=== PATIENT | female | born 1950 | race Caucasian/White ===

== ENCOUNTER → 2016-12-14 | Outpatient (CLI) | payer MEDICARE, OTHER ==
[2016-12-14 10:51] LABS: EKG EKG PERFORMED
[2016-12-14 11:32] LABS: Basophils # (A) 0.1 k/uL (0-0.2); Basophils % (A) 1 %; CH 32.7; Eosinophils # (A) 0.1 k/uL (0-0.7); Eosinophils % (A) 2 %; HCT 35.5 % (34.0-46.0); HDW 2.48; HGB 11.6 gm/dL (11.4-16.0); Luc # (Auto) 0.15; Luc % (Auto) 4; Lymphocytes % (A) 22 %; MCH 32.7 pg (25.0-35.0); MCHC 32.7 g/dL (31.0-37.0); MCV 99.7 fL (80.0-100.0); Mean Platelet Volume 6.6; Monocytes # (A) 0.3 k/uL (0-1.0); Monocytes % (A) 7 %; Neutrophils # (A) 2.7 k/uL (1.3-7.7); Neutrophils % (A) 64 %; RBC 3.56 m/uL (3.80-5.40); RDW 13.5 % (11.5-15.5); WBC 4.3 k/uL (3.8-10.6); WBC (Perox) 4.43
[2016-12-14 11:33] LABS: Partial Thromboplastin Time 22.7 sec (22.0-30.0)
[2016-12-14 11:38] LABS: Appearance,Urine Cloudy (Clear); Bacteria,Urine Occasional /hpf; Bilirubin,Urine Negative (Negative); Glucose,Urine (UA) Negative (Negative); Ketones,Urine Negative (Negative); Leukocyte Esterase,Urine Large (Negative); Mucus,Urine Rare /hpf; Nitrite,Urine Negative (Negative); PH, Urine 5.5 (5.0-8.0); Particle Count 23413; Protein,Urine Trace (Negative); RBC,Urine 5 /hpf (0-5); Specific Gravity,Urine 1.019 (1.001-1.035); Squamous Epithelial Cell,Urine 12 /hpf (0-4); UA Billing (MACRO vs. MICRO) MICRO; Urobilinogen,Urine <2.0 mg/dL (<2.0); WBC,Urine 64 /hpf (0-5)
[2016-12-14 11:39] LABS: ALT 28 U/L (9-52); AST 21 U/L (14-36); Alkaline Phosphatase 94 U/L (38-126); Anion Gap 10 mmol/L; Blood Urea Nitrogen 41 mg/dL (7-17); Calcium 10.2 mg/dL (8.4-10.2); Carbon Dioxide 27 mmol/L (22-30); Chloride 103 mmol/L (98-107); Glucose 95 mg/dL (74-99); Non-African American GFR(MDRD) 35 (>60 ml/min/1.73 sqM); Potassium 5.1 mmol/L (3.5-5.1); Sodium 140 mmol/L (137-145); Total Bilirubin 0.4 mg/dL (0.2-1.3); Total Protein 7.2 g/dL (6.3-8.2)
== END | disposition home or self-care (01) ==
LOC: LABPAT 10:34
PROVIDERS: ATTEND Orthopaedic Surgery
DX: Z01.818 Encounter for other preprocedural examination (principal)
CPT/HCPCS: 80053; 81001; 85025; 85610; 85730; 87070; 93005

== ENCOUNTER 2016-12-31 12:30 | Inpatient (IN) | payer MEDICARE, OTHER ==
[2016-12-30 10:30] VITALS: BMI 35.9
[2017-01-04] MEDS ORDERED: CLINDAMYCIN 900 MG in DEXTROSE 5% IN WATER 50 ML IVPB ONE ×2 (05:00)
[2017-01-04] MEDS ORDERED: MELOXICAM 7.5 MG TAB PO ONE (05:00)
[2017-01-04] MEDS ORDERED: TRANEXAMIC ACID 1,000 MG in SODIUM CHLORIDE 0.9% 100 ML IVPB ONE ×4 (05:00)
[2017-01-04] MEDS ORDERED: ACETAMINOPHEN TAB 500 MG TAB PO ONE (05:00)
[2017-01-04] MEDS ORDERED: HYDROmorphone 1 MG/ML 1 ML SYRINGE IVP PRN ×4 (05:17→16:52)
[2017-01-04] MEDS ORDERED: ONDANSETRON 4 MG/2 ML VIAL IVP ONE (05:17)
[2017-01-04] MEDS ORDERED: DEXAMETHASONE SOD PHOSPHATE 10 MG/ML 1 ML VIAL IV ONE (05:17)
[2017-01-04] MEDS ORDERED: MIDAZOLAM 2 MG/2 ML VIAL IV PRN (05:17)
[2017-01-04] MEDS ORDERED: ROPIVACAINE 246.25 MG, EPINEPHrine 0.5 MG, KETOROLAC 30 MG, cloNIDine HCL/PF 80 MCG, WA... MISCELLANE ONE ×5 (09:01)
[2017-01-04] MEDS ORDERED: LIDOCAINE 1% 20 ML VIAL (10MG/ML) FOR IV START INTRADERMA ONE (12:00)
[2017-01-04 12:10] LABS: Glucose,Whole Blood 125 mg/dL (75-99)
[2017-01-04] MEDS: LACTATED RINGERS 1,000 ML IV SCH (12:10)
[2017-01-04] MEDS ORDERED: fentaNYL (PF) 50 MCG/ML 2 ML AMP IV ONE (13:02)
[2017-01-04] MEDS ORDERED: MIDAZOLAM 2 MG/2 ML VIAL IV ONE (13:02)
[2017-01-04] MEDS ORDERED: ROPIVACAINE 1,100 MG, SODIUM CHLORIDE 0.9% 330 ML MISCELLANE PRN ×2 (14:03)
--- NOTE | 2017-01-04 14:07 | P.ONQ ---
Anesthesiology Proc Note - PNB - Peripheral Nerve Block Performed Left Adductor Canal Infusion Time Out Performed: Yes Indication: Acute Post-Operative Pain, Analgesia Specifically requested for management of pain by DrFlorentin: Erick De La Fuente Sedation Type: Sedate with meaningful contact maintained Preparation: Sterile Prep Position: Supine Catheter Depth at Skin (cm): 6 Catheter: Indwelling Needle Types: Other (see comment) (Pajunk) Needle Size: Other (see comment) (83 mm) Needle Gauge: 18 Technique: Ultrasound Injectate: 0.5% Ropivacaine (see comment for volume) (20 cc) Blood Aspirated: No Pain Paresthesia on Injection Noted: No Resistance on Injection: Normal Events: Uneventful and Well Tolerated
[2017-01-04] MEDS ORDERED: LIDOCAINE 1% INJ 10MG/ML (20 ML MDV) ONE (15:00)
[2017-01-04] MEDS ORDERED: fentaNYL (PF) 50 MCG/ML 2 ML AMP ONE (15:00)
[2017-01-04] MEDS ORDERED: PHENYLEPHRINE-0.9% NACL SYG 1 MG/10 ML SYRINGE ONE (15:00)
[2017-01-04] MEDS ORDERED: MIDAZOLAM 2 MG/2 ML VIAL ONE (15:00)
[2017-01-04] MEDS ORDERED: ePHEDrine 50 MG/ML 1 ML AMP ONE (15:00)
[2017-01-04] MEDS ORDERED: SODIUM CHLORIDE 0.9% 100 ML BAG ONE (15:00)
[2017-01-04] MEDS ORDERED: PROPOFOL 10 MG/ML 20 ML VIAL IV ONE (15:00)
[2017-01-04] MEDS ORDERED: SUCCINYLCHOLINE CHLORIDE 100 MG/5 ML SYR IV ONE (15:00)
[2017-01-04] MEDS ORDERED: TRANEXAMIC ACID 1,000 MG/10 ML VIAL ONE (15:00)
[2017-01-04] MEDS ORDERED: CLINDAMYCIN 1,800 MG in SODIUM CHLORIDE 0.9% IRRIGATIO 3,000 ML IRRIGATION ONE (15:56)
[2017-01-04] MEDS ORDERED: LACTATED RINGERS 1,000 ML IV ONE (15:59)
--- NOTE | 2017-01-04 16:27 | P.OP ---
Date of Procedure: 01/04/17 Preoperative Diagnosis: Severe osteoarthritis left knee Postoperative Diagnosis: Severe osteoarthritis left knee Procedure(s) Performed: Left total knee arthroplasty Implants: Will and Nephew Oxinium femoral component size 5 Narrow, left Will & Nephew Brandi II left nonporous tibial baseplate size 3 Will & Nephew size 9 mm Legion XLPE dished articular insert, size 3-4 Will & Nephew Brandi II resurfacing patellar component, 32 mm All components were cemented using Javier bone cement.. The articulation is ceramic on polyethylene. Anesthesia: spinal Surgeon: Erick De La Fuente Lens Edger #1: Ally Jenkins Lens Edger #2: Shayy Rushing Estimated Blood Loss (ml): 50 Pathology: other (Bone and cartilage) Condition: stable Disposition: PACU Indications for Procedure: After failure of conservative treatment we discussed the surgical and nonsurgical treatment options at length. Patient wishes to proceed with a total knee arthroplasty. Complications specific to this procedure were discussed at length, including but not limited to infection, bleeding, stiffness , and nerve injury. Patient is aware of all these complications and informed consent was obtained Operative Findings: The operative findings are consistent with severe osteoarthritis of the left knee Description of Procedure: Patient was seen in the preoperative area consent was reviewed and operative site was marked with a skin marker. An adductor canal pain catheter was placed by anesthesia in the preoperative area. Patient was then brought to the operating room and given preoperative antibiotics intravenously. A spinal anesthetic was administered by the anesthesia department. A tourniquet was placed on the upper thigh and the lower extremity was prepped and draped in usual sterile fashion. A gram of transexamic acid was given. A universal timeout was then performed which confirmed the patient's name, surgical site, ALLERGIES, and consent. The lower extremity was then exsanguinated and tourniquet was inflated to 250 mmHg. A standard and anterior midline approach to the knee was performed. The skin and subcutaneous tissue was dissected down to the patellar tendon. A medial parapatellar arthrotomy was then performed. The knee was then extended, the patellar was everted, and the knee was again flexed. Anterior horns of both menisci were excised, and a release was performed to the posterior medial aspect of the knee. On gross visual inspection, there was complete loss of articular cartilage in the medial and patellofemoral joint spaces. There was also significant cartilage damage in the lateral compartment. There were multiple periarticular osteophytes which were then removed with a Ronguer. The femoral canal was then opened with the appropriate drill, and the intramedullary femoral cutting guide was then placed and set for 4 of valgus. The distal femoral cutting block was then pinned in place, and the distal femur was then cut. The cutting block was then removed and the cut was checked for flatness. Next, the sizing guide was then placed and set for 3 external rotation based off of the epicondylar axis and Whitesides line. After the femur was sized, the appropriate 4-in-1 cutting block was then pinned in place. The anterior condyles were cut without notching. The posterior and chamfer cuts were performed while protecting the collateral ligaments. The cutting block was then removed, and the femoral canal was plugged with autologous bone. Attention was then directed to the tibia. The remaining ACL was removed with a Ronguer, and the tibia was then gently subluxed forward with a large bent knee retractor. Any remaining menisci was excised. The posterior lateral corner was cauterized in order to cauterize the lateral geniculate artery. The extra medullary tibial cutting guide was then placed, set for the appropriate rotation , slope, and depth of resection. The proximal tibia cutting guide was then pinned in place. Proximal tibia was then cut and sized. Next trials were then placed with the appropriate-sized insert. The knee was able to fully extend and flex to 130 and was stable throughout all range of motion. The knee was then extended, patella everted. Patella was then measured, and then using an osteotomy guide, the patella was cut at the appropriate level. The patella was then measured and drilled and the patella trial was then placed. The knee was then taken through range of motion with the patella trial and the patella tracked normally. The knee was then extended patella trial was then removed and the patella was everted. Knee was then flexed and lug holes were drilled through the femoral trial and the femoral trial was then removed. The tibial was then exposed, and the tibial broach guide was then pinned in place after it was set for the appropriate rotation to allow for the most coverage without overhang. The tibia was then reamed and broached. The cut surfaces of bone were then irrigated with pulsatile lavage. The posterior structures were injected with the ropivacaine solution. The knee was also irrigated with Irrisept solution. The components were then opened, the cement was mixed, and the components were then cemented in place. The cement was allowed to harden with the knee in full extension. While the cement was hardening, the remaining soft tissues were then injected with a ropivacaine solution, which consisted of 246.25 mg of ropivacaine, 0.5 mg of epinephrine, 30 mg of Toradol, 80 g of clonidine, and 48.45 mL of sterile water, for a total of 100 mL of fluid injected. After the cemented hardened. The tourniquet was released, and hemostasis was obtained. A second gram of transexamic acid was given. The knee was again irrigated. The knee was again taken through range of motion and found to be stable throughout all range of motion of 0-130 , and the patella tracked normally. The fascia was then closed with #2 strata fix suture. The subcutaneous tissue was closed with 3-0 Vicryl and 3-0 strata fix. Dermabond tape was used for the skin and placed with the knee in flexion. The patient was placed in a sterile dressing. Patient was then transferred to recovery room in stable condition. The veterinary technician assistant ANKIT Dacosta was required due the complexity surgery and the need for a skilled surgical services director. She assisted in positioning, draping , retraction, and closure of the wound.
[2017-01-04] MEDS ORDERED: NA PHOS,M-B/NA PHOS,DI-BA 133 ML ENEMA RECTAL PRN (16:52)
[2017-01-04] MEDS ORDERED: ONDANSETRON 4 MG/2 ML VIAL IVP PRN (16:52)
[2017-01-04] MEDS ORDERED: DIAZEPAM 5 MG TAB PO PRN ×2 (16:52)
[2017-01-04] MEDS ORDERED: BISACODYL 10 MG SUPP RECTAL PRN (16:52)
[2017-01-04] MEDS ORDERED: NALOXONE 0.4 MG/ML 1 ML VIAL IV PRN (16:52)
[2017-01-04] MEDS ORDERED: HYDROcodone/APAP 5-325MG 1 EACH TAB PO PRN (16:52)
[2017-01-04] MEDS ORDERED: hydrOXYzine PAMOATE 25 MG CAP PO PRN (16:52)
[2017-01-04] MEDS ORDERED: MAGNESIUM HYDROXIDE 2,400 MG/10 ML CUP PO PRN (16:52)
--- NOTE | 2017-01-04 17:20 | XR ---
EXAMINATION TYPE: XR knee limited LT DATE OF EXAM: 01/04/2017 5:13 PM COMPARISON: NONE HISTORY: Postop TECHNIQUE: 2 views FINDINGS: There is a left knee prosthesis. Components appear in anatomic position. There is old heale d fracture of the proximal fibula. IMPRESSION: Knee prosthesis without evidence of a complicating process.
[2017-01-04 17:25] LABS: Glucose,Whole Blood 158 mg/dL (75-99)
[2017-01-04] MEDS ORDERED: LISINOPRIL-HCTZ 20-12.5 MG 1 EACH TAB PO SCH (21:00)
[2017-01-04] MEDS ORDERED: SENNOSIDES-DOCUSATE SODIUM 1 EACH TAB PO SCH (21:00)
[2017-01-04] MEDS: ASPIRIN 325 MG TAB PO SCH (22:11)
[2017-01-04] MEDS: SODIUM CHLORIDE 0.9% 1,000 ML IV SCH (22:16)
[2017-01-05] MEDS: CLINDAMYCIN 900 MG in DEXTROSE 5% IN WATER 50 ML IVPB SCH ×4 (01:18→08:13)
[2017-01-05 02:35] VITALS: RESP 16
[2017-01-05] MEDS: HYDROcodone/APAP 5-325MG 1 EACH TAB PO PRN ×2 (03:03→11:39)
[2017-01-05] MEDS ORDERED: VANCOMYCIN 1,250 MG in SODIUM CHLORIDE 0.9% 250 ML IVPB ONE (05:00)
[2017-01-05] MEDS: LACTATED RINGERS 1,000 ML IV SCH (05:24)
--- NOTE | 2017-01-05 06:17 | CONS ---
DATE OF CONSULTATION: 01/04/2017 REASON FOR CONSULTATION: Medical management requested by Dr. De La Fuente. CONSULTATION: This is a very pleasant 66-year-old patient with extensive medical history. Patient has undergone a left total knee arthroplasty. Postprocedure some pain is present. No nausea or vomiting. No chest pain. Patient's chronic stable medical conditions include diet-controlled diabetes, fibromyalgia, hypertension, osteoarthritis, hypothyroid, pacemaker, bipolar disorder. Family is at the bedside. REVIEW OF SYSTEMS: CONSTITUTIONAL: None. HEENT: None. RESPIRATORY: None. CARDIOVASCULAR: None. GASTROINTESTINAL: None. GENITOURINARY: None. DERMATOLOGICAL: None. HEMATOLOGICAL: None. LYMPHATIC: None. PSYCHIATRY: None. NEUROLOGICAL: None. MUSCULOSKELETAL: Pain in multiple joints. PAST MEDICAL HISTORY: History of stroke with some left-sided numbness, diet-controlled diabetes, fibromyalgia, hypertension, osteoarthritis, hypothyroid, gastric ulcer, bipolar disorder, permanent pacemaker, bradycardia. PAST SURGICAL HISTORY: Adenoidectomy, pacemaker, tonsillectomy, right hip arthroplasty, right total knee, right rotator cuff surgery, pain clinic injection. SOCIAL HISTORY: Lives by herself. Smoked for more than 20 years a pack a day, stopped in 2005. FAMILY HISTORY: Diabetes mellitus type 2. Allergies to PENICILLIN, LYRICA, CYMBALTA. HOME MEDICATIONS: 1. Wellbutrin XL 300 mg a day. 2. Vitamin B complex 1 capsule p.o. daily. 3. Naproxen 500 mg p.o. q.12. 4. Multivitamin 1 tablet p.o. daily. 5. Magnesium 100 mg p.o. daily. 6. Lisinopril hydrochlorothiazide /12.5 one tablet p.o. q.h.s. 7. Tylenol 1000 mg q.6 p.r.n. On examination, temperature 97.6, pulse 60, respirations 12, blood pressure 129/67, pulse ox 97% on room air. GENERAL APPEARANCE: Well built, BMI of 35.9. Sitting up in bed, not in distress, comfortable. EYES: Pupils equal. Conjunctivae normal. HEENT: Oral cavity normal. NECK: JVD not raised. Mass not palpable. RESPIRATORY: Effort normal. LUNGS: Fair air entry. CARDIOVASCULAR: First and second sounds normal. No edema. ABDOMEN: Soft, nontender. Liver and spleen not palpable. LYMPHATIC: No lymph node palpable in neck or axillae. PSYCHIATRY: Alert and oriented x3. Mood and affect normal. NEUROLOGICAL: Pupils equal. Cranial nerves grossly intact. EXTREMITIES: Left knee in a dressing. ASSESSMENT: 1. Left total knee arthroplasty. 2. Numbness on the left side chronic from prior stroke. 3. Diet-controlled diabetes mellitus type 2. 4. Chronic fibromyalgia. 5. Essential hypertension. 6. Primary osteoarthritis of multiple joints, bilaterally. 7. Hypothyroidism, chronic. 8. Permanent pacemaker, chronic. 9. Bipolar disorder, controlled, stable. PLAN: Continue current medication and treatment plan, supportive care. The patient is on aspirin 325 p.o. b.i.d. for DVT prophylaxis. Pain control is in place. Care was discussed with the patient. Questions were answered. Home medications will be resumed. Thank you, Dr. De La Fuente.
[2017-01-05 07:09] VITALS: BP 113/70; PULSE 62; TEMP 98.1
[2017-01-05 07:39] LABS: Basophils % (A) 1 %; CH 33.4; CHCM 33.6; Eosinophils # (A) 0.1 k/uL (0-0.7); Eosinophils % (A) 1 %; HCT 29.8 % (34.0-46.0); HDW 2.48; Luc # (Auto) 0.22; Luc % (Auto) 3; Lymphocytes # (A) 0.9 k/uL (1.0-4.8); Lymphocytes % (A) 12 %; MCH 33.3 pg (25.0-35.0); MCHC 33.4 g/dL (31.0-37.0); MCV 99.7 fL (80.0-100.0); Mean Platelet Volume 6.5; Monocytes # (A) 0.5 k/uL (0-1.0); Monocytes % (A) 7 %; Neutrophils # (A) 6.3 k/uL (1.3-7.7); Neutrophils % (A) 78 %; RBC 2.99 m/uL (3.80-5.40); RDW 13.1 % (11.5-15.5); WBC 8.1 k/uL (3.8-10.6)
[2017-01-05 07:42] LABS: HGB 9.9 gm/dL (11.4-16.0)
[2017-01-05] MEDS: ASPIRIN 325 MG TAB PO SCH (08:13)
[2017-01-05] MEDS ORDERED: buPROPion XL 300 MG TAB.ER.24H PO SCH (09:00)
[2017-01-05] MEDS ORDERED: MELOXICAM 7.5 MG TAB PO SCH (09:00)
[2017-01-05] MEDS ORDERED: MAGNESIUM OXIDE 400 MG TAB PO SCH (09:00)
--- NOTE | 2017-01-05 09:12 | P.DS ---
Providers Date of admission: 01/04/17 11:14 Expected date of discharge: 01/05/17 Attending physician: Erick De La Fuente Consults: 01/04/17 16:52 Consult Physician Routine Consulting Provider: Amadou Pérez Consult Reason/Comments: medical management Do you want consulting provider notified?: Yes 01/04/17 17:26 Consult Physician Routine Consulting Provider: Fran Nunez Consult Reason/Comments: medical managment Do you want consulting provider notified?: Yes Primary care physician: Amadou Pérez [facility] Course: This is a 66-year-old female with known history of degenerative arthritis of the left knee. The patient presents for evaluation. After discussion and consideration patient elects to proceed with total knee arthroplasty. The patient is seen preoperatively by Dr. De La Fuente and cleared for surgery. Patient is admitted to [facility] on 01/04/2017 for total knee arthroplasty. The procedures performed without complication or sequelae. The patient is doing well postoperatively. Labs and vital signs are stable on day of discharge. On day of discharge patient's knee incision is healing well. Patient has been up and walking. There is minimal erythema. There is no drainage noted at this time. There is minimal soft tissue swelling to the knee. Patient has full foot and ankle motion without difficulty or pain. Neurovascular status to the left lower extremity is intact. Patient is discharged home in good condition. Please see med rec for accurate list of home medications. Plan - Discharge Summary New Discharge Prescriptions: Aspirin 325 mg PO BID #60 tab HYDROcodone/APAP 5-325MG [[place] 5-325] 1 - 2 tab PO Q4-6H PRN #90 tab PRN Reason: Pain Sennosides-Docusate Sodium [Senokot-S] 1 tab PO BID #60 tablet Discharge Medication List Multivitamins, Thera [Multivitamin (formulary)] 1 tab PO DAILY 12/26/15 [History ] buPROPion XL [Wellbutrin XL] 300 mg PO QAM 12/26/15 [History] Lisinopril-Hctz 20-12.5 mg [Zestoretic 20-12.5] 1 tab PO HS 03/12/16 [History] Vitamin B Complex 1 cap PO DAILY 03/22/16 [History] Magnesium 100 mg PO DAILY 05/04/16 [History] Naproxen 500 mg PO Q12HR 12/30/16 [History] Acetaminophen Tab [Tylenol Tab] 1,000 mg PO Q6HR PRN 01/04/17 [History] Aspirin 325 mg PO BID #60 tab 01/05/17 [Rx] HYDROcodone/APAP 5-325MG [[place] 5-325] 1 - 2 tab PO Q4-6H PRN #90 tab 01/05/17 [ Rx] Sennosides-Docusate Sodium [Senokot-S] 1 tab PO BID #60 tablet 01/05/17 [Rx] Follow up Appointment(s)/Referral(s): Erick De La Fuente DO [Doctor of Osteopathic Medicine] - 2 Weeks Ambulatory/Diagnostic Orders: Continuous Passive Motion (CPM) Machine [DME.AMB1] Time Frame: 2 Weeks, Location : Determined By Patient Activity/Diet/Wound Care/Special Instructions: Weightbearing as tolerated with a walker CPM 5-6h daily Daily dressing changes, keep incision clean and dry May shower if no drainage from incision [facility] with questions or concerns [phone] Discharge Disposition: HOME WITH HOME HEALTH SERVICES
--- NOTE | 2017-01-05 12:24 | P.PN ---
Progress Note - Text 0747 anesthesia POD 1. Patient is status post left TKR under spinal anesthesia with a left adductor canal catheter placed for postoperative pain relief. With ropivacaine 0.2% running at 8 mL per hour patient's VAS is (1, 3). Catheter site is clean dry and intact.
[2017-01-05] MEDS: SODIUM CHLORIDE 0.9% 1,000 ML IV SCH (17:13)
--- NOTE | 2017-01-05 21:58 | PN ---
DATE OF SERVICE: 01/05/2017 PRESENTING COMPLAINT: Left total knee arthroplasty. INTERVAL HISTORY: Patient was seen earlier by me today. Pain is controlled. No nausea or vomiting. Tolerating a diet. Did work with Physical Therapy, rather excited to go home. Review of systems done for constitutional, cardiovascular, GI, pulmonary, musculoskeletal; relevant findings as above. Current medications are reviewed. On examination, temperature 98.1, pulse 62, respirations 16, blood pressure 103/70, pulse ox 99% on room air. GENERAL APPEARANCE: Sitting up, not in distress. EYES: Pupils equal. Conjunctivae normal. NECK: JVD not raised. Mass not palpable. RESPIRATORY: Effort normal. LUNGS: Clear. CARDIOVASCULAR: First and second sounds normal. No edema. ABDOMEN: Soft, nontender. Liver and spleen not palpable. PSYCHIATRY: Alert and oriented x3. Mood and affect were normal. INVESTIGATIONS: White count 8.1, hemoglobin 9.9. ASSESSMENT: 1. Left total knee arthroplasty. 2. Numbness of the left side; chronic, from prior stroke. 3. Diet-controlled diabetes mellitus type 2. 4. Chronic fibromyalgia. 5. Essential hypertension. 6. Primary osteoarthritis in multiple joints bilaterally. 7. Hypothyroidism, chronic. 8. Permanent pacemaker. 9. Bipolar disorder, controlled. PLAN: Continue current medication and treatment plan. Care was discussed with the patient.
== END 2017-01-05 16:46 | disposition home health service (06) | DRG 470 ==
LOC: 2ORMAIN 01-04 11:14 → 3SUR 01-04 17:21
PROVIDERS: ADMIT Orthopaedic Surgery; ATTEND Orthopaedic Surgery
PROC: 0SRD0J9 Replacement of Left Knee Joint with Synthetic Substitute, Cemented, Open Approach (ICD-10-PCS; principal; 2017-01-04 13:15)
DX: M17.12 Unilateral primary osteoarthritis, left knee (principal); I10 Essential (primary) hypertension; E03.9 Hypothyroidism, unspecified; Z88.0 Allergy status to penicillin; E11.9 Type 2 diabetes mellitus without complications; F31.9 Bipolar disorder, unspecified; M79.7 Fibromyalgia; Z86.73 Personal history of transient ischemic attack (TIA), and cerebral infarction without residual deficits; Z87.11 Personal history of peptic ulcer disease; Z87.891 Personal history of nicotine dependence; Z95.0 Presence of cardiac pacemaker; Z79.899 Other long term (current) drug therapy
CPT/HCPCS: 85025; 88300

== ENCOUNTER → 2017-04-11 | Outpatient (CLI) | payer MEDICARE, OTHER ==
[2017-04-11 09:26] LABS: Calcium 9.9 mg/dL (8.4-10.2); Phosphorous 3.8 mg/dL (2.5-4.5); Potassium 5.1 mmol/L (3.5-5.1); Total Bilirubin 0.3 mg/dL (0.2-1.3); Total Protein 7.3 g/dL (6.3-8.2); Uric Acid 5.1 mg/dL (3.7-7.4)
[2017-04-11 10:04] LABS: Basophils % (A) 1 %; CH 32.9; CHCM 33.3; Eosinophils # (A) 0.2 k/uL (0-0.7); Eosinophils % (A) 4 %; HCT 39.7 % (34.0-46.0); HDW 2.44; HGB 12.9 gm/dL (11.4-16.0); Luc # (Auto) 0.17; Luc % (Auto) 4; Lymphocytes # (A) 1.6 k/uL (1.0-4.8); Lymphocytes % (A) 36 %; MCH 32.3 pg (25.0-35.0); MCHC 32.6 g/dL (31.0-37.0); MCV 99.1 fL (80.0-100.0); Monocytes # (A) 0.4 k/uL (0-1.0); Monocytes % (A) 9 %; Neutrophils # (A) 2.1 k/uL (1.3-7.7); Neutrophils % (A) 47 %; RBC 4.01 m/uL (3.80-5.40); RDW 13.1 % (11.5-15.5); WBC 4.4 k/uL (3.8-10.6); WBC (Perox) 4.05
[2017-04-11 17:18] LABS: Urine Creatinine 88.7 mg/dL
== END | disposition home or self-care (01) ==
LOC: LABWHC1 08:28
PROVIDERS: ATTEND Family Medicine
DX: I12.9 Hypertensive chronic kidney disease with stage 1 through stage 4 chronic kidney disease, or unspecified chronic kidney disease (principal); N18.3 Chronic kidney disease, stage 3 (moderate); R94.6 Abnormal results of thyroid function studies
CPT/HCPCS: 36415; 80053; 80061; 82043; 82306; 82570; 83735; 84100; 84439; 84443; 84550; 85025

== ENCOUNTER → 2017-11-14 | Outpatient (CLI) | payer MEDICARE, OTHER ==
[2017-11-14 09:37] LABS: Basophils # (A) 0.1 k/uL (0-0.2); Basophils % (A) 0 %; Eosinophils # (A) 0.1 k/uL (0-0.7); Eosinophils % (A) 0 %; HCT 30.4 % (34.0-46.0); HGB 10.1 gm/dL (11.4-16.0); Lymphocytes # (A) 0.8 k/uL (1.0-4.8); Lymphocytes % (A) 5 %; MCH 31.8 pg (25.0-35.0); MCHC 33.2 g/dL (31.0-37.0); MCV 95.8 fL (80.0-100.0); Monocytes # (A) 0.9 k/uL (0-1.0); Monocytes % (A) 5 %; Neutrophils # (A) 15.9 k/uL (1.3-7.7); Neutrophils % (A) 88 %; Platelet Count 313 k/uL (150-450); RBC 3.17 m/uL (3.80-5.40); RDW 13.3 % (11.5-15.5)
[2017-11-14 10:00] LABS: Albumin 3.5 g/dL (3.5-5.0); Calcium 9.5 mg/dL (8.4-10.2); Magnesium 1.7 mg/dL (1.6-2.3); Phosphorus 2.6 mg/dL (2.5-4.5); Potassium 5.1 mmol/L (3.5-5.1); Total Bilirubin 0.3 mg/dL (0.2-1.3); Total Protein 6.5 g/dL (6.3-8.2); Uric Acid 6.7 mg/dL (3.7-7.4)
[2017-11-14 10:09] LABS: T4, Free (Free Thyroxine) 1.23 ng/dL (0.78-2.19)
[2017-11-14 15:22] LABS: Vitamin D 25 Hydroxy 26.9 ng/mL (30.0-100.0)
== END | disposition home or self-care (01) ==
LOC: LABWHC1 08:53
PROVIDERS: ATTEND Family Medicine
DX: E78.5 Hyperlipidemia, unspecified (principal); E83.42 Hypomagnesemia; I12.9 Hypertensive chronic kidney disease with stage 1 through stage 4 chronic kidney disease, or unspecified chronic kidney disease; N18.3 Chronic kidney disease, stage 3 (moderate); E03.9 Hypothyroidism, unspecified
CPT/HCPCS: 36415; 80053; 80061; 82043; 82306; 82570; 83735; 83970; 84100; 84439; 84443; 84550; 85025

== ENCOUNTER → 2017-11-18 | Outpatient (CLI) | payer MEDICARE, OTHER ==
[2017-11-18 09:34] LABS: Basophils # (A) 0.1 k/uL (0-0.2); Basophils % (A) 1 %; Eosinophils # (A) 0.2 k/uL (0-0.7); Eosinophils % (A) 2 %; HCT 29.6 % (34.0-46.0); HGB 9.2 gm/dL (11.4-16.0); Lymphocytes % (A) 13 %; MCH 29.8 pg (25.0-35.0); MCHC 31.2 g/dL (31.0-37.0); MCV 95.3 fL (80.0-100.0); Mean Platelet Volume 6.9; Monocytes # (A) 0.7 k/uL (0-1.0); Monocytes % (A) 10 %; Neutrophils # (A) 5.2 k/uL (1.3-7.7); Neutrophils % (A) 70 %; Platelet Count 395 k/uL (150-450); RDW 13.1 % (11.5-15.5); WBC 7.4 k/uL (3.8-10.6)
[2017-11-18 10:02] LABS: Calcium 9.8 mg/dL (8.4-10.2)
[2017-11-18 19:16] LABS: Hemoglobin A1C 5.8 % (4.0-6.0)
== END | disposition home or self-care (01) ==
LOC: LABWHC1 09:14
PROVIDERS: ATTEND Family Medicine
DX: R73.01 Impaired fasting glucose (principal); N18.4 Chronic kidney disease, stage 4 (severe); D63.1 Anemia in chronic kidney disease
CPT/HCPCS: 36415; 80048; 83036; 85025

== ENCOUNTER → 2017-11-25 | Outpatient (CLI) | payer MEDICARE, OTHER ==
--- NOTE | 2017-11-25 15:43 | US ---
EXAMINATION TYPE: US kidneys/renal and bladder DATE OF EXAM: 11/25/2017 COMPARISON: none CLINICAL HISTORY: N18.4 Stage 4 chronic kidney disease. EXAM MEASUREMENTS: Right Kidney: 9.5 x 3.9 x 4.2 cm Left Kidney: 11.1 x 4.1 x 4.2 cm Patient of large body habitus, technically difficult and limited study. Right Kidney: No hydronephrosis or masses seen Left Kidney: No hydronephrosis or masses seen Bladder: not well visualized There is no evidence for hydronephrosis at this point in time. No nephrolithiasis is seen. No carina s are identified. The urinary bladder is anechoic. Bilateral ureteral jets are seen. IMPRESSION: No distinct abnormality seen at this time.
== END | disposition home or self-care (01) ==
LOC: RADUSWWP 14:55
PROVIDERS: ATTEND Family Medicine
DX: N18.4 Chronic kidney disease, stage 4 (severe) (principal)
CPT/HCPCS: 76770

== ENCOUNTER → 2018-01-02 | Outpatient (CLI) | payer MEDICARE, OTHER ==
[2018-01-02 12:12] LABS: Basophils # (A) 0.1 k/uL (0-0.2); Basophils % (A) 1 %; Eosinophils # (A) 0.2 k/uL (0-0.7); Eosinophils % (A) 3 %; HCT 32.2 % (34.0-46.0); HGB 10.5 gm/dL (11.4-16.0); Lymphocytes # (A) 1.3 k/uL (1.0-4.8); Lymphocytes % (A) 28 %; MCH 31.3 pg (25.0-35.0); MCHC 32.7 g/dL (31.0-37.0); MCV 95.7 fL (80.0-100.0); Mean Platelet Volume 6.7; Monocytes # (A) 0.3 k/uL (0-1.0); Monocytes % (A) 7 %; Neutrophils # (A) 2.6 k/uL (1.3-7.7); Neutrophils % (A) 58 %; Platelet Count 357 k/uL (150-450); RBC 3.36 m/uL (3.80-5.40); RDW 13.6 % (11.5-15.5); WBC 4.4 k/uL (3.8-10.6)
[2018-01-02 12:23] LABS: Albumin 4.1 g/dL (3.5-5.0); Calcium 10.2 mg/dL (8.4-10.2); Magnesium 1.7 mg/dL (1.6-2.3); Phosphorus 3.6 mg/dL (2.5-4.5); Potassium 5.8 mmol/L (3.5-5.1); Uric Acid 5.4 mg/dL (3.7-7.4)
[2018-01-02 12:44] LABS: Amorphous Sediment,Urine Rare /hpf; Appearance,Urine Cloudy (Clear); Bacteria,Urine Many /hpf; Bilirubin,Urine Negative (Negative); Blood,Urine Small (Negative); Color,Urine Yellow; Glucose,Urine (UA) Negative (Negative); Ketones,Urine Negative (Negative); Leukocyte Esterase,Urine Large (Negative); Mucus,Urine Occasional /hpf; Nitrite,Urine Negative (Negative); PH, Urine 5.5 (5.0-8.0); Protein,Urine Trace (Negative); RBC,Urine 32 /hpf (0-5); Specific Gravity,Urine 1.012 (1.001-1.035); Squamous Epithelial Cell,Urine 6 /hpf (0-4); Urobilinogen,Urine <2.0 mg/dL (<2.0); WBC,Urine 116 /hpf (0-5)
[2018-01-02 18:48] LABS: Iron Saturation 30.17 (12.00-45.00); Protein, Total 7.2 g/dL (6.2-8.2)
[2018-01-02 19:50] LABS: Parathyroid Hormone Intact 50.4 pg/mL (14.0-72.0)
[2018-01-02 20:00] LABS: DNA Double-Stranded NEGATIVE (NEGATIVE)
[2018-01-03 11:32] LABS: ANA Pattern Homogeneous; ANA Pattern 2 See Footnote
[2018-01-03 13:55] LABS: C-ANCA <1:20 Titer (<1:20); P-ANCA <1:20 Titer (<1:20)
[2018-01-05 09:50] LABS: Albumin 3.79 g/dL (3.80-4.90); Gamma Globulin 1.43 g/dL (0.70-1.50)
== END | disposition home or self-care (01) ==
LOC: LABWHC1 11:32
PROVIDERS: ATTEND Internal Medicine Nephrology
DX: N39.0 Urinary tract infection, site not specified (principal); M10.9 Gout, unspecified; D63.1 Anemia in chronic kidney disease; N18.4 Chronic kidney disease, stage 4 (severe); N17.9 Acute kidney failure, unspecified; N25.81 Secondary hyperparathyroidism of renal origin; E55.9 Vitamin D deficiency, unspecified
CPT/HCPCS: 36415; 80048; 81001; 82040; 82306; 82728; 83516; 83540; 83550; 83735; 83883; 83970; 84100; 84165; 84550; 85025; 86038; 86039; 86160; 86162; 86225; 86255; 86335

== ENCOUNTER → 2018-01-30 | Outpatient (CLI) | payer MEDICARE, OTHER ==
[2018-01-30 14:04] LABS: Basophils % (A) 1 %; Eosinophils # (A) 0.1 k/uL (0-0.7); Eosinophils % (A) 2 %; HCT 34.5 % (34.0-46.0); HGB 11.3 gm/dL (11.4-16.0); Lymphocytes # (A) 1.1 k/uL (1.0-4.8); Lymphocytes % (A) 28 %; MCH 31.7 pg (25.0-35.0); MCHC 32.8 g/dL (31.0-37.0); MCV 96.8 fL (80.0-100.0); Mean Platelet Volume 6.4; Monocytes # (A) 0.3 k/uL (0-1.0); Monocytes % (A) 9 %; Neutrophils # (A) 2.3 k/uL (1.3-7.7); Neutrophils % (A) 58 %; Platelet Count 344 k/uL (150-450); RBC 3.57 m/uL (3.80-5.40); RDW 13.6 % (11.5-15.5); WBC 3.9 k/uL (3.8-10.6)
[2018-01-30 14:08] LABS: Calcium 10.2 mg/dL (8.4-10.2); Magnesium 1.9 mg/dL (1.6-2.3); Phosphorus 3.9 mg/dL (2.5-4.5); Potassium 5.4 mmol/L (3.5-5.1); Uric Acid 5.3 mg/dL (3.7-7.4)
[2018-01-30 14:24] LABS: T4, Free (Free Thyroxine) 1.05 ng/dL (0.78-2.19)
== END | disposition home or self-care (01) ==
LOC: LABWHC1 12:28
PROVIDERS: ATTEND Family Medicine
DX: N18.4 Chronic kidney disease, stage 4 (severe) (principal); D63.1 Anemia in chronic kidney disease; E03.9 Hypothyroidism, unspecified
CPT/HCPCS: 36415; 80048; 82043; 82570; 83735; 83970; 84100; 84439; 84443; 84550; 85025

== ENCOUNTER 2018-01-31 07:37 | Day surgery (SDC) | payer MEDICARE, OTHER ==
[2018-01-30 08:48] VITALS: BMI 37.2
[~2018-01-31 07:37] MED LIST: LACTATED RINGERS 1,000 ML IV SCH
[2018-01-31 08:08] VITALS: TEMP 98.4
[2018-01-31] MEDS ORDERED: LIDOCAINE 1% 20 ML VIAL (10MG/ML) FOR IV START INTRADERMA ONE (08:22)
[2018-01-31 08:24] LABS: Glucose,Whole Blood 99 mg/dL (75-99)
[2018-01-31] MEDS ORDERED: PROPOFOL 10 MG/ML 20 ML VIAL IV ONE (08:45)
--- NOTE | 2018-01-31 09:28 | P.PCN ---
Date of Procedure: 01/31/18 Procedure(s) Performed: Procedure: Total colonoscopy. Preoperative diagnosis: Screening for neoplasia. Postoperative diagnosis: Sigmoid diverticulosis with no evidence of acute diverticulitis, strictures, polyps or cancer. Preparation: HalfLytely prep. Sedation: Was provided by anesthesia. Brief clinical history: The patient is a 67-year-old female who is scheduled for this evaluation for screening for neoplasia. She had a prior exam more than 15 years ago. She has no abdominal complaints, bleeding or anemia. Procedure: With the patient on her left lateral decubitus position and after informed consent and adequate sedation, the perianal area was inspected and it did not show any fissures or fistulas. There were no masses felt on digital rectal examination. The Olympus CF Q160 L videocolonoscope was then inserted in the rectum in the usual fashion and advanced. However, I was not able to advance it safely in the sigmoid and I exchanged it for the Olympus PCF H190L video colonoscope which was advanced without difficulty in the sigmoid and then all the way to the cecum. There was multiple diverticular orifices seen scattered in the sigmoid with no evidence of acute diverticulitis or strictures. No polyps or tumors were seen. The mucosa appeared healthy. I retroflexed the endoscope in the rectum before the endoscope was withdrawn. The patient tolerated the procedure well. Plan: The patient was reassured. Discussed dietary measures. She will follow- up with you as planned and I recommended repeat exam in 10 years.
[2018-01-31 09:49] VITALS: BP 159/76; PULSE 67; RESP 18
[2018-01-31] MEDS ORDERED: ONDANSETRON ODT 8 MG TAB.RAPDIS PO STA (10:01)
== END 2018-01-31 10:41 | disposition home or self-care (01) ==
LOC: ORWHC2ENDO 07:37
DX: Z12.11 Encounter for screening for malignant neoplasm of colon (principal); K57.30 Diverticulosis of large intestine without perforation or abscess without bleeding; E11.9 Type 2 diabetes mellitus without complications; I10 Essential (primary) hypertension; M79.7 Fibromyalgia; E78.5 Hyperlipidemia, unspecified; I69.90 Unspecified sequelae of unspecified cerebrovascular disease; N28.9 Disorder of kidney and ureter, unspecified; E07.9 Disorder of thyroid, unspecified; Z96.641 Presence of right artificial hip joint; Z95.0 Presence of cardiac pacemaker; Z87.891 Personal history of nicotine dependence; Z79.891 Long term (current) use of opiate analgesic; Z79.899 Other long term (current) drug therapy; Z88.0 Allergy status to penicillin; Z88.8 Allergy status to other drugs, medicaments and biological substances
CPT/HCPCS: J2704; G0121

== ENCOUNTER → 2018-02-10 | Outpatient (CLI) | payer MEDICARE, OTHER ==
--- NOTE | 2018-02-10 13:04 | XR ---
EXAMINATION TYPE: XR bone survey complete DATE OF EXAM: 02/10/2018 COMPARISON: Prior chest 07/15/2016 HISTORY: Z71.3 Frontal chest, frontal lateral views of the spine, frontal views of the proximal upper and lower extr emities, AP pelvis, 2 views of the calvarium are submitted on a total of 16 images. Multilevel spondylosis is present in the cervical spine with anterolisthesis grade 1 C2-3, retrolisth esis grade 1 C4-5, C5-6, anterolisthesis grade 1 C6-7. Loss of disc height present at the interverteb ral levels C3-4 through C5-6. Facet arthropathy changes are present. Bone mineralization is mildly re duced. Acromioclavicular joint arthropathy present within the shoulders. No lytic or secretions ident ified within the skeleton. Postop changes are noted to the right hip, heterotopic new bone present ab out the right hip. Patient is status post bilateral knee arthroplasties. Degenerative disc changes ar e also noted lumbar spine with anterolisthesis grade 1 L3-4, there is multilevel loss of disc height, decreased bone mineralization. Sclerosis in the posterior elements is compatible with facet arthropa thy.. Sclerosis present in the sacroiliac joints. Pacemaker is present with leads in the right atrium and ventricle. Mild spinal curvature is present in the thoracic spine, there is multilevel spondylos is, loss of disc height. Postop change in the right shoulder. IMPRESSION: Osteopenia, degenerative disc disease. Multilevel facet arthropathy. Postop changes.
== END | disposition home or self-care (01) ==
LOC: RADXRMAIN 11:34
PROVIDERS: ATTEND Internal Medicine Hematology & Oncology
DX: M51.36 Other intervertebral disc degeneration, lumbar region (principal); M46.92 Unspecified inflammatory spondylopathy, cervical region; M85.88 Other specified disorders of bone density and structure, other site; Z98.890 Other specified postprocedural states; Z71.3 Dietary counseling and surveillance
CPT/HCPCS: 77075

== ENCOUNTER 2018-04-10 13:16 | Day surgery (SDC) | payer MEDICARE, OTHER ==
[2018-04-04 10:30] VITALS: BMI 37.8
[~2018-04-10 13:16] MED LIST changes: +DEXAMETHASONE SOD PHOSPHATE 10 MG/ML 1 ML VIAL IV ONE; +HYDROmorphone 0.5 MG/0.5 ML SYRINGE IVP PRN; +LIDOCAINE 1% 20 ML VIAL (10MG/ML) FOR IV START INTRADERMA PRN; +ONDANSETRON 4 MG/2 ML VIAL IVP ONE; +ceFAZolin IN SWFI 2 GM/20 ML SYRINGE IVP ONE
[2018-04-10 13:39] LABS: Glucose,Whole Blood 81 mg/dL (75-99)
[2018-04-10 13:41] VITALS: RESP 16; TEMP 98
[2018-04-10] MEDS ORDERED: fentaNYL (PF) 50 MCG/ML 2 ML AMP ONE (15:12)
[2018-04-10] MEDS ORDERED: PROPOFOL 10 MG/ML 20 ML VIAL IV ONE (15:12)
[2018-04-10] MEDS ORDERED: LIDOCAINE 1% INJ 10MG/ML (20 ML MDV) ONE (15:12)
[2018-04-10] MEDS ORDERED: ROPIVACAINE 5 MG/ML 30 ML VIAL MISCELLANE ONE (15:18)
[2018-04-10] MEDS ORDERED: LIDOCAINE 2% INJ 20 MG/ML SQ ONE (15:18)
[2018-04-10 15:51] VITALS: BP 120/53; PULSE 69
--- NOTE | 2018-04-10 20:33 | OP ---
OPERATIVE REPORT DATE OF PROCEDURE: 04/10/2018 PREOPERATIVE DIAGNOSIS: Right trigger thumb. POSTOPERATIVE DIAGNOSIS: Right trigger thumb. PROCEDURE: Right trigger thumb release. PROCEDURE DESCRIPTION: The patient was taken to the operative suite and given intravenous sedation. I then performed a digital block of the thumb using a combination of Xylocaine and Marcaine, both without epinephrine. The hand was then prepped and draped in the usual manner. The hand was elevated and exsanguinated. The cuff was inflated to 250 mmHg. A transverse incision was made in the proximal skin crease of the thumb. Blunt dissection was taken through the subcutaneous tissue to identify the neurovascular bundles. They were kept in view and gently retracted out of harm's way while a longitudinal release of the A1 izabela was performed. The flexor pollicis longus was examined and slight swelling was noted, but the tendon was intact. The tendon was gently retracted from the wound to ensure no adhesion. The wound was then thoroughly irrigated, tourniquet released. Hemostasis was acquired and the skin was closed with 5-0 nylon suture. Soft bulky dressing was applied. The patient was taken to the recovery room in satisfactory condition. MMODL / IJN: [id number] /
== END 2018-04-10 15:59 | disposition home or self-care (01) ==
LOC: OR 13:16
PROVIDERS: ATTEND Orthopaedic Surgery Hand Surgery
DX: M65.311 Trigger thumb, right thumb (principal); Z79.890 Hormone replacement therapy; Z79.1 Long term (current) use of non-steroidal anti-inflammatories (NSAID); Z79.891 Long term (current) use of opiate analgesic; Z79.899 Other long term (current) drug therapy; I10 Essential (primary) hypertension; E11.9 Type 2 diabetes mellitus without complications; Z95.0 Presence of cardiac pacemaker; Z88.0 Allergy status to penicillin; Z88.8 Allergy status to other drugs, medicaments and biological substances; Z87.891 Personal history of nicotine dependence
CPT/HCPCS: 26055; J2001 ×2; J1100; J2405; J3010; J2795; J2704; J0690